=== PATIENT | male | born 2000 | race American Indian/Alaskan Native ===

== ENCOUNTER 2023-02-01 15:24 | Emergency (ER) | payer BC ==
[2023-02-01 16:26] LABS: Bacteria/HPF None Seen HPF (None Seen); Bilirubin Negative (Negative); Blood, Urine Negative (Negative); CAUTI Indications for Culture Pelvic or flank pain; Clarity Clear (Clear); Glucose, Urine (Dipstick) Normal (Negative); Ketone, Urine Negative (Negative); Leukocyte Negative Leu/uL (Negative); Nitrite Negative (Negative); Protein, Urine (Dipstick) 10 mg/dL (Neg-Trace); RBC/HPF 0-3 HPF (0-3); Specific Gravity, Urine 1.027 (1.002-1.036); Squamous Epithelial None Seen HPF (0-3); Urobilinogen Normal mg/dL (Less than 2); WBC/HPF 0-3 HPF (0-3); pH, Urine 6.5 (5.0-9.0)
[2023-02-01 16:29] LABS: Urine Culture Reflex No No
[2023-02-01] MEDS ORDERED: fentaNYL 50 mcg/mL 1 mL Vial ONE ×2 (20:16→22:31)
[2023-02-01] MEDS ORDERED: SUGAMMADEX SODIUM 200 MG/2 ML VIAL ONE (20:16)
[2023-02-01] MEDS ORDERED: Midazolam HCl 2 mg/2 ml Vial ONE (20:16)
[2023-02-01] MEDS ORDERED: Bacitracin Zinc Ointment 30 gm TUBE ONE (20:26)
[2023-02-01] MEDS ORDERED: Lidocaine 2% PF 5 ML VIAL ONE (20:26)
[2023-02-01] MEDS ORDERED: Ondansetron PF 4 MG/2 ML Vial ONE ×2 (20:56→22:35)
[2023-02-01] MEDS ORDERED: Rocuronium Bromide 10 MG/ML (10ML VIAL) ONE (20:56)
[2023-02-01] MEDS ORDERED: Succinylcholine 200 MG/10 ml SYRINGE FS ONE (20:56)
[2023-02-01] MEDS ORDERED: Lidocaine 1% PF 5 ML VIAL ONE (20:56)
[2023-02-01] MEDS ORDERED: PROPOFOL 200 MG/20 ML VIAL ONE (20:56)
[2023-02-01] MEDS ORDERED: Dexamethasone 20 MG/5 ML VIAL ONE (20:56)
[2023-02-01] MEDS ORDERED: Bupivacaine PF 0.5% 30 ML VIAL ONE (21:16)
[2023-02-01] MEDS ORDERED: EPINEPHrine 1 MG/ML AMP ONE (21:16)
== END 2023-02-01 20:54 | disposition admitted as inpatient to this hospital (09) ==
LOC: ERS 15:24
PROC: 0VS90ZZ Reposition Right Testis, Open Approach (ICD-10-PCS; principal; 2023-02-01)
PROC: 0VBB0ZZ Excision of Left Testis, Open Approach (ICD-10-PCS; 2023-02-01)
DX: N44.00 Torsion of testis, unspecified (principal); N50.89 Other specified disorders of the male genital organs
CPT/HCPCS: 76870; 81001; 88305; 93976; J0171; J1100; J2001; J2250; J2405; J2704; J3010; S0020